=== PATIENT | male | born 1960 | race Caucasian/White ===

== ENCOUNTER 2021-10-11 16:43 | Emergency (ER) | payer OTHER, SELFPAY ==
[2021-10-11] VITALS (9 sets, daily range): BP systolic 106–132; BP diastolic 63–84; PULSE 65–78; RESP 16–17; TEMP 36.5; O2SAT 92–95
--- NOTE | ~2021-10-11 | CT_ITS ---
EXAMINATION: CT cervical spine wo con DATE: 10/11/2021 17:04 INDICATION: fall, etoh+ TECHNIQUE: Computed tomography (CT) of the cervical spine was performed without intravenous contrast. Automated exposure control and iterative reconstruction technique were employed. The dose-length pro duct was 398.98 mGy-cm. COMPARISON: None FINDINGS: Counting reference: Craniocervical junction. There are seven cervical type vertebral bodies. Anatomic Variants: None. Vertebral Body Alignment: Intact. Craniocervical junction: Moderate degenerative change. Alignment intact. Osseous structures/fracture: No evidence of a lytic or blastic process in the visualized spine. N o evidence of acute fracture. Cervical soft tissues: The paraspinal soft tissues planes are maintained. Degenerative changes: Multilevel severe degenerative disc disease. Multilevel severe bilateral neural foraminal narrowing. Severe central canal narrowing at C5-6. IMPRESSION: No acute fracture or traumatic malalignment in the cervical spine. Reviewed, dictated and finalized at location K.
--- NOTE | ~2021-10-11 | CT_ITS ---
EXAMINATION: CT brain wo con DATE: 10/11/2021 17:03 INDICATION: fall, R eyelid contusion . TECHNIQUE: Computed tomography (CT) of the head was performed without intravenous contrast. The mA wa s adjusted according to patient size. Iterative reconstruction technique was employed. The dose-lengt h product was 605.33 mGy-cm. COMPARISON: None FINDINGS: No acute intracranial hemorrhage or extra-axial fluid collection. No hydrocephalus, mass, or herniation. No acute ischemic infarct. Unremarkable dural venous sinus attenuation. No acute osseous abnormality. Right frontal/periorbital soft tissue swelling. The aerated spaces are clear. Mild atrophy and chronic white matter change. Atherosclerotic intracranial calcifications. IMPRESSION: No acute intracranial process. Reviewed, dictated and finalized at location K.
--- NOTE | 2021-10-11 17:18 | ED.HEATRA ---
HPI - Head Injury General Chief complaint: Head Injury <Akilah Pillai MD - Last Filed: 10/15/21 21:50> Stated complaint: drinking, unsteady, fell, eyebrow hematoma <Akilah Pillai MD - Last Filed: 10/15/21 21:50> Time Seen by Provider: 10/11/21 19:01 <Akilah Pillai MD - Last Filed: 10/15/21 21:50> History of Present Illness HPI Narrative: 61-year-old male presents after he drank too much earlier, fell and hit his head, denies any loss of consciousness, it was a witnessed fall because he was stumbling, he states that he did have 4 tall boys and several shots of whiskey. He denies any pain anywhere, or blurry vision, no neck pain, chest pain, abdominal pain, extremity pain. No nausea or vomiting <Akilah Pillai MD - Last Filed: 10/15/21 21:50> Related Data Allergies/Adverse reactions: Allergies Allergy/AdvReac Type Severity Reaction Status Date / Time No Known Allergies Allergy Verified 10/11/21 16:48 <Akilah Pillai MD - Last Filed: 10/15/21 21:50> Review of Systems Review of Systems: CONST: No fever. HEAD: Head trauma EYES: No blurry vision NECK: No neck pain ENT: No jaw pain C/V: No chest pain RESP: No trouble breathing GI: No nausea or vomiting M/S: No joint pain. SKIN: Contusion to right eyelid NEURO: [No headache or focal numbness or weakness] <Akilah Pillai MD - Last Filed: 10/15/21 21:50> [facility] Past Medical History Medical History: Medical History (Updated 10/12/21 @ 00:00 by Yun Solis) Hypertension <Akilah Pillai MD - Last Filed: 10/15/21 21:50> Social History Social History: Social History (Updated 10/11/21 @ 17:22 by Akilah Pillai MD) Alcohol intake: current <Akilah Pillai MD - Last Filed: 10/15/21 21:50> Exam Narrative: EXAMINATION OF ORGAN SYSTEMS/BODY AREAS: Constitutional: Vital signs per nursing GENERAL:[No acute distress] HEAD: Right face contusion EYES: EOMI, conjunctiva normal, PERRL, R eyelid contusion ENT: Hearing grossly intact LUNGS: Nonlabored breathing. HEART: [Regular rate and rhythm] ABD: [Soft], [nontender to palpation] EXT: Normal range of motion, no tenderness to palpation or deformity SKIN: Contusion right eyelid NEURO: [Alert and oriented x 3. Slightly slurred speech and ataxia.] PSYCH: Intoxicated <Akilah Pillai MD - Last Filed: 10/15/21 21:50> Course Reevaluation(s) Reevaluation #1: Received signout on the patient pending metabolization and discharge home. Time my evaluation patient had no complaints slurring his words. He has been unable to get a ride home and does not want to call a taxi. <Imtiaz Escudero MD - Last Filed: 10/11/21 22:39> Date: 10/11/21 <Imtiaz Escudero MD - Last Filed: 10/11/21 22:39> Time: 19:17 <Imtiaz Escudero MD - Last Filed: 10/11/21 22:39> Reevaluation #2: Patient was upset when he woke up. In the emergency room he was agitated yelling at staff. Patient was requesting to leave. Work-up was unremarkable. Patient walked out of the emergency room. We offered to call a taxi for transportation home as he was unable to get a ride patient declined he does not have have his car keys. Patient ripped out his IV and left the emergency room <Imtiaz Escudero MD - Last Filed: 10/11/21 22:39> Date: 10/11/21 <Imtiaz Escudero MD - Last Filed: 10/11/21 22:39> Time: 20:09 <Imtiaz Escudero MD - Last Filed: 10/11/21 22:39> Vital Signs Vital signs: Vital Signs Temperature 97.7 F 10/11/21 16:42 Pulse Rate 78 10/11/21 16:42 Respiratory Rate 16 10/11/21 16:42 Blood Pressure 106/63 10/11/21 16:42 Pulse Oximetry 95 10/11/21 16:42 Temperature 97.7 F 10/11/21 16:42 Pulse Rate 65 10/11/21 19:30 Respiratory Rate 17 10/11/21 19:30 Blood Pressure 132/84 10/11/21 19:30 Pulse Oximetry 95 10/11/21 19:30 <Akilah Pillai MD - Last Filed: 10/15/21 21:50> Vital Signs Temperature 97.7 F 10/11/21 16:42 Pulse Rate 7
[2021-10-11] MEDS: TETANUS,DIPHTHERIA,AC PERTUSSIS ADULT (0.5 ML) BOOSTRIX IM (17:19)
[2021-10-11 18:00] LABS: Glucose Point of Care 117 mg/dl (65-105)
--- NOTE | 2021-10-11 20:16 | PC.NURSE ---
pt asking t leave, a/o. pt not wanting to wait on a ride. pt took own iv out. ambulating without assistance. pt escorted out with security
== END 2021-10-11 20:18 | disposition home or self-care (01) ==
PROVIDERS: Emergency Medicine; Emergency Provider Emergency Medicine
DX: S09.90XA Unspecified injury of head, initial encounter (principal); I10 Essential (primary) hypertension; W01.0XXA Fall on same level from slipping, tripping and stumbling without subsequent striking against object, initial encounter
CPT/HCPCS: 70450; 72125; 82948; 90471; 90715; 99284